=== PATIENT | male | born 1965 | race Hispanic/Latino ===

== ENCOUNTER 2018-02-21 11:27 | Emergency (ER) | payer SELFPAY ==
[2018-02-21 11:40] VITALS: BP 134/85
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
[2018-02-21] MEDS ORDERED: TORADOL IM ONE (12:23)
[2018-02-21] MEDS ORDERED: PERCOCET 5/325 PO ONE (12:23)
[2018-02-21] MEDS ORDERED: ZOFRAN ODT PO ONE (12:23)
[2018-02-21] MEDS ORDERED: DECADRON IM ONE (12:23)
== END 2018-02-21 13:57 | disposition home or self-care (01) ==
LOC: ED 11:27
DX: M54.5 Low back pain (principal); G89.29 Other chronic pain; M62.830 Muscle spasm of back; F41.9 Anxiety disorder, unspecified; F17.200 Nicotine dependence, unspecified, uncomplicated; F12.10 Cannabis abuse, uncomplicated
CPT/HCPCS: 96372; 99282; J1100; J1885; Q0162

== ENCOUNTER 2019-04-22 09:43 | Emergency (ER) | payer OTHER ==
[2019-04-22 10:06] VITALS: BP 133/77
[2019-04-22] MEDS ORDERED: TYLENOL PO ONE (11:37)
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
== END 2019-04-22 12:37 | disposition home or self-care (01) ==
LOC: ED 09:43
DX: S39.012A Strain of muscle, fascia and tendon of lower back, initial encounter (principal); F41.9 Anxiety disorder, unspecified; F17.200 Nicotine dependence, unspecified, uncomplicated; V49.49XA Driver injured in collision with other motor vehicles in traffic accident, initial encounter; Y93.89 Activity, other specified; Y92.89 Other specified places as the place of occurrence of the external cause; Y99.8 Other external cause status